=== PATIENT | male | born 1990 | race Caucasian/White ===

== ENCOUNTER 2019-09-07 01:33 | Emergency (ER) | payer BC, OTHER ==
[2019-09-07] MEDS ORDERED: Bupivacaine 0.5% 10 ML SDV ONE (02:21)
--- NOTE | 2019-09-07 02:36 | EDM.PDOC ---
ED HPI GENERAL MEDICAL PROBLEM - General Chief Complaint: General Stated Complaint: TOOTH PAIN Time Seen by Provider: 09/07/19 01:34 Source of Information: Reports: Patient History Limitations: Reports: No Limitations - History of Present Illness INITIAL COMMENTS - FREE TEXT/NARRATIVE: HISTORY OF PRESENT ILLNESS: Patient is a 28 year old male who reports pain to left lower molar, worse today, is scheduled for a dentist appointment today at 3pm. Came to ED as he could not sleep due to the pain. Denies any fevers or chills. No chest pain or dyspnea. No difficulty swallowing or breathing. Denies any discharge. No recent trauma. Has been using OTC medication without relief. He is only here for pain control and plans to see his dentist in a few hours for further treatment REVIEW OF SYSTEMS: Other than the symptoms associated with the present events, the following is reported with regard to recent health: General: (-) fever. HENT: (-) congestion. Respiratory: (-) cough. Cardiovascular: (-) chest pain. Musculoskeletal: (-) other aches or pains. Neurological: (-) localized weakness. Skin: (-) rash PAST MEDICAL HISTORY: reviewed as per nursing notes SOCIAL HISTORY: reviewed as per nursing notes, MEDICATIONS: Per nurse's note ALLERGIES: Per nurse's note, reviewed by me PHYSICAL EXAMINATION: GENERALIZED APPEARANCE: well developed, well nourished in mild distress VITAL SIGNS: Per nurse's note, reviewed by me SKIN: Warm, dry; (-) cyanosis; (-) rash. HEAD: (-) scalp swelling, (-) tenderness. EYES: (-) conjunctival pallor, (-) scleral icterus. ENMT: (-) stridor; mucous membranes moist. broken lower left molar with buccal gingival erythema without fluctuance/abscess. uvula midline. no phonation changes. no trismus. airway widely patent. NECK: (-) tenderness, (-) stiffness, no meningismus CHEST AND RESPIRATORY: (-) rales, (-) rhonchi, (-) wheezes; breath sounds equal bilaterally. HEART AND CARDIOVASCULAR: (-) irregularity; (-) murmur, (-) gallop. EXTREMITIES: (-) deformity, (-) edema. NEURO AND PSYCH: Alert. Cranial nerves grossly intact; preciado x 4. gait steady Procedure: see below EMERGENCY DEPARTMENT COURSE AND TREATMENT: Patient's condition remained stable during Emergency Department evaluation. Patient presents with acute dentalgia. There is no obvious dental abscess on exam. There is no trismus and the patient is tolerating PO fluids. There is no obvious facial cellulitis. Instructions were given to return for worsening pain, facial swelling, SOB, or not tolerating fluids. Patient already has an appointment to see his dentist in a few hours for further management. PLAN AND FOLLOW-UP: Patient received written and verbal instructions regarding this condition. Return to ED immediately with any new or worsening symptoms. Follow up to be arranged by patient with dentist today for further evaluation. Given discharge precautions. patient expressed verbal understanding. dental Pain Score (Numeric/FACES): 6 - Related Data Allergies Allergy/AdvReac Type Severity Reaction Status Date / Time No Known Allergies Allergy Verified 05/09/14 08:13 Home Meds: Home Meds Cetirizine HCl/Pseudoephedrine [[id number]] 10/09/14 [History] Past Medical History - Past Health History Medical/Surgical History: Denies Medical/Surgical History Cardiovascular History: Reports: None Respiratory History: Reports: None Gastrointestinal History: Reports: None Genitourinary History: Reports: None Musculoskeletal History: Reports: None Neurological History: Reports: None Psychiatric History: Reports: None Endocrine/Metabolic History: Reports: None Hematologic History: Reports: None Oncologic (Cancer) History: Reports: None Dermatologic History: Reports: None - Infectious Disease History Infectious Disease History: Reports: None Social & Family History - Family History Family Medical History: Noncontributory - Tobacco Use Smoking Status *Q: Former Smoker Used Tobacco, but Quit: Yes Month/Year Tobacco Last Used: 09/06 - Recreational Drug Use Recreational Drug Use: No ED ROS GENERAL - Review of Systems Review Of Systems: See Below (see dictation) ED EXAM, GENERAL - Physical Exam Exam: See Below (see dictation) ED GENERAL MEDICAL PROCEDURES - Additional/Other Procedure(s) Other (Free Text) Procedure(s): Inferior alveolar block: the distribution of the inferior alveolar nerve was identified by landmarks. ~3cc of bupivacaine was injected into that region. A short time later adequate analgesia was obtained. Pt tolerated well. Course - Vital Signs Last Recorded V/S: Last Vital Signs Temp 98.2 F 09/07/19 02:52 Pulse 68 09/07/19 02:52 Resp 16 09/07/19 02:52 BP 136/90 09/07/19 02:52 Pulse Ox 97 09/07/19 02:52 - Orders/Labs/Meds Meds: Medications Discontinued Medications Generic Name Dose Route Start Last Admin Trade Name Tamra PRN Reason Stop Dose Admin Bupivacaine HCl Confirm 09/07/19 02:21 09/07/19 02:46 Sensorcaine-Mpf 0.5% Administered 09/07/19 02:22 Not Given Dose 10 ml .ROUTE .STK-MED ONE Bupivacaine HCl 10 ml 09/07/19 02:38 09/07/19 02:46 Sensorcaine-Mpf 0.5% INJECT 09/07/19 02:39 10 ml ONETIME ONE Administration Ketorolac Tromethamine 30 mg 09/07/19 02:38 09/07/19 02:46 Toradol IM 09/07/19 02:39 30 mg ONETIME ONE Administration Departure - Departure Time of Disposition: 02:34 Disposition: Home, Self-Care 01 Condition: Good Clinical Impression: Dental caries - Discharge Information *PRESCRIPTION DRUG MONITORING PROGRAM REVIEWED*: Not Applicable *COPY OF PRESCRIPTION DRUG MONITORING REPORT IN PATIENT CHAR: Not Applicable Instructions: Diet and Dental Disease, Preventive Dental Care, Adult Referrals: Jayne Argueta [Ordering Only Provider] - 2 Days Forms: ED Department Discharge Additional Instructions: The following information is given to patients seen in the emergency department who are being discharged to home. This information is to outline your options for follow-up care. We provide all patients seen in our emergency department with a follow-up referral. The need for follow-up, as well as the timing and circumstances, are variable depending upon the specifics of your emergency department visit. If you don't have a primary care physician on staff, we will provide you with a referral. We always advise you to contact your personal physician following an emergency department visit to inform them of the circumstance of the visit and for follow-up with them and/or the need for any referrals to a consulting specialist. The emergency department will also refer you to a specialist when appropriate. This referral assures that you have the opportunity for follow-up care with a specialist. All of these measure are taken in an effort to provide you with optimal care, which includes your follow-up. Under all circumstances we always encourage you to contact your private physician who remains a resource for coordinating your care. When calling for follow-up care, please make the office aware that this follow-up is from your recent emergency room visit. If for any reason you are refused follow-up, please contact the [facility] Emergency Department at and asked to speak to the emergency department charge nurse. Sepsis Event Note - Evaluation Sepsis Screening Result: No Definite Risk - Focused Exam Vital Signs: Vital Signs Temp Pulse Resp BP Pulse Ox 09/07/19 02:52 98.2 F 68 16 136/90 97 09/07/19 01:47 97.1 F 84 18 126/82 98 Date Exam was Performed: 09/07/19 Time Exam was Performed: 04:56
[2019-09-07] MEDS ORDERED: Ketorolac 30 MG/ML SDV IM ONE (02:38)
[2019-09-07] MEDS ORDERED: Bupivacaine 0.5% 10 ML SDV INJECT ONE (02:38)
[2019-09-07 02:53] VITALS: BP 136/90; PULSE 68
== END 2019-09-07 02:50 | disposition home or self-care (01) ==
LOC: MW.ED 01:33
DX: K02.9 Dental caries, unspecified (principal); Z87.891 Personal history of nicotine dependence
CPT/HCPCS: 64400; 96372; 99282; J1885; J3490

== ENCOUNTER 2019-12-11 16:20 | Emergency (ER) | payer BC ==
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
--- NOTE | 2019-12-11 17:04 | CT ---
CT cervical spine Technique: Multiple axial sections were obtained from above C1 inferiorly to the top of the T5 vertebral body. Reconstructed sagittal and coronal images were reviewed. Comparison: Previous cervical spine study of 01/21/16. Findings: Vertebral body heights and disc spaces are maintained. No fracture is appreciated. No bony central or bony neural foraminal stenosis is seen. Minimal scoliosis is present. Mild mucosal thickening is noted within the inferior left maxillary sinus. Impression: 1. Minimal sinus finding believed to be nonacute and incidental. 2. Nothing acute is appreciated on CT study of the cervical spine. Diagnostic code #2 This report was dictated in MDT
--- NOTE | 2019-12-11 17:49 | CR ---
Left scapula: 2 views of the left scapula were obtained. No discrete fracture or other bony abnormality is seen. Impression: 1. No abnormality is seen on 2 view left scapular exam. Diagnostic code #1 This report was dictated in MDT
--- NOTE | 2019-12-11 17:49 | CR ---
Left clavicle: 2 views left clavicle were obtained. No fracture or other bony abnormality is identified. Impression: 1. No abnormality is appreciated on 2 view left clavicle exam. Diagnostic code #1 This report was dictated in MDT
--- NOTE | 2019-12-11 17:52 | CR ---
Left shoulder: AP view of the left shoulder was obtained. Comparison: No prior shoulder study. No fracture or other abnormality is appreciated. Impression: 1. No abnormality is seen on AP left shoulder study. Diagnostic code #1 This report was dictated in MDT
--- NOTE | 2019-12-11 17:52 | CR ---
Left elbow: 2 views left elbow were obtained. Well-corticated bony density is noted off the medial epicondyle which likely relates to old injury. No joint effusion is seen. No acute fracture or other bony abnormality is appreciated. Impression: 1. Old bony injury as noted above. 2. Nothing acute is appreciated on 2 view left elbow exam. Diagnostic code #2 This report was dictated in MDT
--- NOTE | 2019-12-11 17:52 | CR ---
Left humerus: 2 views of the left humerus were obtained. Comparison: No previous study. No fracture or other bony abnormality is appreciated. Impression: 1. No abnormality is seen on 2 view left humerus exam. Diagnostic code #1 This report was dictated in MDT
[2019-12-11] MEDS ORDERED: Ondansetron 4 MG Tab.DIS PO ONE (18:25)
[2019-12-11] MEDS ORDERED: Morphine 10 MG/ML Syringe IM ONE (18:25)
[2019-12-12 01:25] VITALS: BP 147/85; PULSE 81
== END 2019-12-11 18:55 | disposition home or self-care (01) ==
LOC: MW.ED 16:20
DX: S43.402A Unspecified sprain of left shoulder joint, initial encounter (principal); S50.02XA Contusion of left elbow, initial encounter; V86.56XA Driver of dirt bike or motor/cross bike injured in nontraffic accident, initial encounter
CPT/HCPCS: 72125; 73000; 73010; 73020; 73060; 73070; 96372; 99284; A9270; J2270

== ENCOUNTER 2020-05-25 19:06 | Emergency (ER) | payer BC ==
[2020-05-25] MEDS ORDERED: Sodium Chloride 0.9% 10 ML Syringe FLUSH PRN (19:13)
[2020-05-25] MEDS ORDERED: Sodium Chloride 0.9% 2.5 ML Syringe FLUSH PRN (19:13)
[2020-05-25] MEDS ORDERED: fentaNYL 50 MCG/ML SDV IVPUSH ONE (19:13)
[2020-05-25] MEDS ORDERED: Ondansetron 4 MG/2 ML SDV IVPUSH ONE (19:13)
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
[2020-05-25 19:50] VITALS: BP 121/86; PULSE 98
[2020-05-25] MEDS ORDERED: HYDROmorphone 1 MG/ML Syringe IVPUSH ONE (19:51)
--- NOTE | 2020-05-25 20:04 | CT ---
INDICATION: Trauma COMPARISON: None TECHNIQUE: CT examination of the cervical spine is performed without contrast using spiral technique. Thin axial, sagittal and coronal reconstructions were made. Please note that all CT scans at this facility use dose modulation, iterative reconstruction, and/or weight-based dosing when appropriate to reduce radiation dose to as low as reasonably achievable. FINDINGS: : Bone mineral density is normal. There is no fracture, dislocation or destructive process. There are no significant appearing arthritic findings. IMPRESSION: No visible fracture, dislocation or destructive process. Please note that all CT scans at this facility use dose modulation, iterative reconstruction, and/or weight-based dosing when appropriate to reduce radiation dose to as low as reasonably achievable. Dictated by Osei Corea MD @ May 25 2020 7:56PM Signed by Dr. Osei Corea @ May 25 2020 8:02PM
--- NOTE | 2020-05-25 20:09 | CT ---
Indication: Trauma Technique: CT of the thoracic spine was performed. Imaging was acquired axially. Contrast was not administered. Sagittal and coronal reformatted imaging was performed Comparison: None Findings: No fracture, dislocation or destructive process. No significant arthritic change. There are biapical blebs. This puts the patient at risk for spontaneous pneumothorax. Impression: 1. No visible acute posttraumatic finding involving the thoracic spine. 2. Biapical blebs. This puts the patient at risk for spontaneous pneumothorax. Please note that all CT scans at this facility use dose modulation, iterative reconstruction, and/or weight-based dosing when appropriate to reduce radiation dose to as low as reasonably achievable. Dictated by Osei Corea MD @ May 25 2020 8:02PM Signed by Dr. Osei Corea @ May 25 2020 8:06PM
[2020-05-25 20:16] LABS: BLOOD UREA NITROGEN,BUN 11 mg/dL (7.0-18.0); CARBON DIOXIDE,CO2 23.9 mmol/L (21.0-32.0); CHLORIDE,CL 103 mmol/L (98-107); GLUCOSE RANDOM 113 mg/dL (74-106); LIPASE 189 U/L (73-393); SODIUM,NA 139 mmol/L (136-148)
--- NOTE | 2020-05-25 20:19 | CR ---
INDICATION: Pain after trauma COMPARISON: None available. FINDINGS: The feet were examined bilaterally with AP, lateral, and oblique views. There is an acute, nondisplaced, comminuted, intra-articular fracture of the medial aspect of the base of the left 1st distal phalanx with horizontal and longitudinal fracture lines. There is an acute, nondisplaced, oblique, intra-articular fracture of the base of the right 1st distal phalanx, with fracture line extending from the medial proximal shaft into the lateral articular surface at the base of the distal phalanx. There is no sign of additional fracture or dislocation. The soft tissues are normal in appearance without sign of radio-opaque foreign body. There is a tiny plantar calcaneal spur on the left. No additional degenerative disease is seen. IMPRESSION: Acute, nondisplaced, comminuted, longitudinal and transverse intra-articular fracture of the medial aspect of the base of the left 1st distal phalanx. Acute, nondisplaced, oblique, intra-articular fracture of the base of the right 1st distal phalanx. Dictated by Hemant Allen MD @ May 25 2020 8:12PM Signed by Dr. Hemant Allen @ May 25 2020 8:19PM
--- NOTE | 2020-05-25 20:19 | CT ---
Indication: Trauma Technique: CT examination of the lumbar spine was acquired. This includes T12. T12 was not included in the thoracic spine study therefore the fracture discussed below was not discussed in the thoracic spine report. Contrast was administered. Sagittal and coronal reformatted imaging was performed. Comparison: None prior to today Findings: There is a transverse fracture of the posterior elements of T12.. The fracture is a purely horizontal fracture that traverses through the inferior articular facet of T12 on both the left and right side. The fracture traverses from left to right as a horizontal fractures through the right lamina extending to the left lamina and then to the left inferior T12 articular facet. This traverses just above the spinous process which is non fractured. This traverses just below the pedicles which do not appear to be fractured. There is no visible anterior column fracture. The superior articular facet of L1 are intact. Impression: T12 fracture as described above. I discussed the above findings with Dr. Green at 8:15 p.m. on May 25, [address] that all [address] scans at this facility use dose modulation, iterative reconstruction, and/or weight-based dosing when appropriate to reduce radiation dose to as low as reasonably achievable. Dictated by Osei Corea MD @ May 25 2020 8:06PM Signed by Dr. Osei Corea @ May 25 2020 8:18PM
--- NOTE | 2020-05-25 20:23 | CR ---
INDICATION: Pelvis injury from trauma TECHNIQUE: Pelvis radiograph 1 view COMPARISON: None FINDINGS: Moderate image quality degradation noted due to an overlying backboard. Bone: No acute fractures or aggressive bone lesions are identified. Evaluation of the right femoral neck is limited due to foreshortening from external rotation of the leg. Joint: The hip joint is unremarkable. The visualized sacroiliac joints are unremarkable in appearance. The pubic symphysis is normal in appearance. Soft tissue: Unremarkable. The visualized bowel gas pattern of the pelvis is unremarkable in appearance. No radiopaque foreign bodies are seen. IMPRESSIONS: 1. No acute osseous injuries or abnormalities are noted. 2. Evaluation of the right femoral neck is limited due to foreshortening from external rotation of the leg. If there is a high clinical index of suspicion of traumatic injury, evaluation with dedicated hip radiograph is recommended. Dictated by Damon Rowe MD @ 05/25/2020 8:21:10 PM Dictated by: Damon Rowe MD @ 05/25/2020 20:21:20 (Electronically Signed)
--- NOTE | 2020-05-25 20:23 | CR ---
INDICATION: Chest trauma from fall TECHNIQUE: Chest radiograph 1 view COMPARISON: None FINDINGS: Moderate image quality degradation noted due to an overlying backboard. Mediastinum: The mediastinum is normal in appearance. The heart silhouette is normal in size and morphology. Lung: Both lungs are unremarkable in appearance. No sign of pleural effusion seen. No pneumothorax is identified. Bone and Soft tissue: Unremarkable for age. IMPRESSION: 1. No acute cardiopulmonary disease is seen. Dictated by Damon Rowe MD @ 05/25/2020 8:21:47 PM Dictated by: Damon Rowe MD @ 05/25/2020 20:21:51 (Electronically Signed)
[2020-05-25] MEDS ORDERED: diazePAM 5 MG/ML MDV ONE (21:01)
== END 2020-05-25 22:15 ==
LOC: MW.ED 19:06
DX: S22.089A Unspecified fracture of T11-T12 vertebra, initial encounter for closed fracture (principal); S92.425A Nondisplaced fracture of distal phalanx of left great toe, initial encounter for closed fracture; S92.424A Nondisplaced fracture of distal phalanx of right great toe, initial encounter for closed fracture; V28.4XXA Motorcycle driver injured in noncollision transport accident in traffic accident, initial encounter
CPT/HCPCS: 36415; 71045; 72125; 72128; 72131; 72170; 73620; 80053; 83690; 85025; 86850; 86900; 86901; 96374; 96375; 99285; J1170; J2405; J3010; J3360